=== PATIENT | male | born 1945 | race Caucasian/White ===

== ENCOUNTER 2016-11-11 21:37 | Inpatient (IN) | payer BC ==
--- NOTE | ~2016-11-11 | IDS ---
Interim Discharge Summary [facility] [address] [place]. [address] NAME: HORTENSIA LUA : 43 STATUS : DIS IN PAT#: [id number] AGE: 70 ADM/REG DATE : 11/11/16 MR#: [id number] REPORT SERV DATE: 11/22/16 DICTATED BY: ARIA GAYTAN DATE: 11/21/16 REPORT STATUS : Draft TRANSCRIBED BY: MODL DATE: 11/21/16 ADMISSION DATE: 11/11/2016 DISCHARGE DATE: 11/21/2016 ADDENDUM: For details of this patient's hospital course please see the interim discharge summary dictated by Dr. Timo Kurtz on 11/19/2016. Since that time, the patient has not required any further blood transfusions and the plan was to see if the patient would pass a modified barium swallow. This was done on 11/20/2016. The modified barium swallow was ordered, showed aspiration with all swallows. It was recommended that the patient be kept n.p.o. Other option would be to keep the Dobbhoff. PEG tube was discussed with Gastroenterology, and the patient is not a candidate for a PEG tube secondary to his bleeding and his gastric tumor. [facility] saw the patient on 11/20/2016 and their note stated that the patient would receive no further treatment and the focus should be on quality of life and recommended hospice be consulted. Hospice was indeed consulted on 11/20/2016 and as per the patient's wishes, the patient will be going home with hospice. Currently, he is on amiodarone drip and will be transitioned to oral amiodarone. He was sufficiently treated for Pseudomonas pneumonia. The remainder of his medication and management will be as per hospice. So, he will be discharged home with hospice on 11/21/2016. JOSE A/SAW Aria Gaytan M.D. / [id number] CC: DO Khoi Perez D.O.
--- NOTE | ~2016-11-11 | CN ---
Consultation Report [facility] [address] [place]. [address] NAME: HORTENSIA LUA : 44 STATUS : ADM IN [facility]#: [id number] AGE: 70 ADM/REG DATE : 11/11/16 MR#: [id number] REPORT SERV DATE: 11/14/16 DICTATED BY: RILEY THAKKAR III DATE: 11/14/16 REPORT STATUS : Draft TRANSCRIBED BY: MODL DATE: 11/14/16 CONSULTATION DATE OF CONSULTATION: 11/14/2016 REASON FOR CONSULTATION: 1. Upper gastrointestinal bleeding. 2. Proximal gastric mass. 3. Recommendation regarding surgical management. HISTORY OF PRESENT ILLNESS: I am asked to see this 70-year-old male in the hospital in the Intensive Care Unit for the above reasons. The patient is currently intubated and sedated. The information I have available is from his caregivers and his records. The patient has a history of squamous cell carcinoma of the esophagus. This apparently was diagnosed approximately 10 years ago. He was treated with radiation therapy and chemotherapy. Approximately one year ago in August 2015, he was not found to have recurrent or persistent distal esophageal squamous cell carcinoma. He again underwent radiation therapy and chemotherapy. His recent workup shows evidence for metastatic disease with CT scan of the abdomen and pelvis showing hepatic metastasis. The patient was admitted emergently initially to the [facility] with profound anemia, and evidence for upper GI bleeding. He reported melena. The patient is on Eliquis due to paroxysmal atrial fibrillation. On presentation there, the patient was found to be hypotensive. He had a hemoglobin of 6.3 and hematocrit of 20.4. Since that time, the patient has received about 6 units of blood in transfusion. He has undergone an upper endoscopy and found to have a proximal gastric mass. He underwent a mesenteric arteriogram earlier this week per Dr. Riley Boo. He is found to have evidence for left gastric arterial bleeding and this was successfully embolized. He has had no evidence for bleeding in the last 48 hours or so. He remains on the ventilator. 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 PAST MEDICAL HISTORY: 1. History of esophageal cancer as above. 2. History of paroxysmal atrial fibrillation. 3. Hypertension. 4. Chronic systolic heart failure. 5. COPD. 6. Degenerative joint disease. Consultation Report [facility] [address] [place]. [address] NAME: HORTENSIA LUA : 43 STATUS : ADM IN PAT#: [id number] AGE: 70 ADM/REG DATE : 11/11/16 MR#: [id number] REPORT SERV DATE: 11/14/16 DICTATED BY: RILEY THAKKAR III DATE: 11/14/16 REPORT STATUS : Draft TRANSCRIBED BY: MODCorby DATE: 11/14/16 PAST SURGICAL HISTORY: Includes tonsillectomy, appendectomy, Port-A-Cath placement, parathyroid excisions and spinal fusion. SOCIAL HISTORY: The patient has a previous history of tobacco use. He has a history of alcohol use. He is . He lives [place], [place]. FAMILY HISTORY: Positive for alcoholic cirrhosis. MEDICATIONS: As per the medication list which I reviewed. REVIEW OF SYSTEMS: Not able to obtain. The patient has reported 20 pounds weight loss in the last month. PHYSICAL EXAMINATION: GENERAL: Reveals a male who is intubated and sedated. He is responsive to pain. VITAL SIGNS: Blood pressure of 83/56, temperature 97.6, and pulse of 100. HEENT: Unremarkable. NECK: Unremarkable. NEUROLOGIC: Cranial nerves 2 through 12 are normal. LUNGS: Clear. CARDIAC: Normal. ABDOMEN: Soft and nontender. EXTREMITIES: Unremarkable with no edema. LABORATORY DATA: Electrolytes are unremarkable. Liver enzymes are unremarkable except for an alkaline phosphatase of 253. Most recent hematocrit of 27.2, white blood cell count of 11.8, platelet count of 105,000. INR is normal. CT scan of the abdomen and pelvis performed on 11/09/2016 showed a necrotic gastric cardia, 5.4 cm mass corresponding to the FDG avid mass seen on the PET scan on 08/15/2016. The mass is noted to be increased in size from 4.6 to 5.4 cm. There were noted to be suspicious left retroperitoneal periaortic nodes. There were noted to be multiple hypoattenuating lesions throughout the liver in all segments, many of which are subcentimeter in size, which are suspicious for metastatic disease. There was noted to be an interval development of the paraesophageal level 8 lymph nodes. Endoscopy was performed this week per Dr. Duffy, shows a proximal gastric mass. Endoscopy was performed by Dr. Yousif on 07/21/2016 showed an ulcerated mass in the cardia just below the GE junction. Biopsies were taken at that time and confirmed squamous cell carcinoma. ASSESSMENT: 1. 70-year-old male with persistent squamous cell carcinoma of the esophagus, now extending into the proximal stomach, with stage IV disease with hepatic metastasis and retroperitoneal metastasis. 2. Upper gastrointestinal bleeding related to this mass. The bleeding has been stopped by Interventional Radiology with embolization of the left gastric artery. 3. Hypertension. Consultation Report [facility] [id number] [place]. [address] NAME: HORTENSIA LUA : 44 STATUS : ADM IN PAT#: [id number] AGE: 70 ADM/REG DATE : 11/11/16 MR#: [id number] REPORT SERV DATE: 11/14/16 DICTATED BY: RILEY THAKKAR III DATE: 11/14/16 REPORT STATUS : Draft TRANSCRIBED BY: MODL DATE: 11/14/16 4. Radiation therapy x2 to the mid and distal esophagus. 5. History of alcohol use in the past and tobacco use. PLAN: The patient is stable at this time hemodynamically. He has no evidence for bleeding since the embolization procedure was performed. I do not believe that we have a surgical option which would be reasonable for this patient. Surgical resection of this tumor would require esophagogastrectomy which I feel clearly would be contraindicated in the presence of stage IV disease with hepatic metastasis. I would recommend proceeding with weaning as tolerated. It is possible that the patient may have significant amount of time remaining before further bleeding recurs after his recent embolization. Again, though surgical treatment would require esophagogastrectomy, which I feel is not indicated in the presence of stage IV disease with hepatic metastasis. I will discuss with the patient and his family. We will follow the patient with you. LONDON/SAW Riley Thakkar III, M.D. / [phone] CC: DO Khoi Perez D.O.
--- NOTE | ~2016-11-11 | IDS ---
Interim Discharge Summary [facility] [address] [place]. [address] NAME: HORTENSIA LUA : 43 STATUS : ADM IN PAT#: [id number] AGE: 70 ADM/REG DATE : 11/11/16 MR#: [id number] REPORT SERV DATE: 11/19/16 DICTATED BY: LANNY KURTZ DATE: 11/19/16 REPORT STATUS : Draft TRANSCRIBED BY: MODL DATE: 11/19/16 ADMISSION DATE: 11/11/2016 DISCHARGE DATE: DATE OF TRANSFER TO [facility]: 11/12/2016 INTERIM DIAGNOSES: 1. Acute hypoxic respiratory failure. 2. Pseudomonas pneumonia. 3. Upper gastrointestinal bleed. 4. Gastric tumor. 5. Atrial fibrillation with rapid ventricular response. 6. Dysphagia. 7. Delirium. HOSPITAL COURSE: Please see dictated H and P and consult notes for full patient presentation and history. BRIEF SUMMARY: The patient is a 70-year-old gentleman with a past medical history of esophageal cancer as well as paroxysmal atrial fibrillation, who initially presented to [facility] with an episode of syncope and GI bleed. He was intubated at that time and was in shock, and had an upper GI endoscopy performed, which showed a gastric mass and evidence of bleeding. He was then transferred over here on 11/12/2016 for interventional radiology and coiling which was done followed by repeat endoscopy that showed the gastric mass again, but no further bleeding. The patient's hospital course has been complicated by respiratory failure, GI bleed, atrial fibrillation with rapid ventricular response, dysphagia, and delirium. 1. Upper GI bleed. This has since resolved. Most likely, it was from the gastric tumor that was revealed on EGD. He had coiling done in Interventional Radiology and has had no further bleeding other than two scant maroon-colored stools several days ago. His hemoglobin has been stable and he remains on a PPI. 2. Gastric tumor. Most likely, this is a recurrence of his esophageal cancer. Oncology has been following as well as Surgery and they state that he is not a surgical or chemotherapy candidate at this time. He has received chemoradiation in the past for his history of esophageal cancer. The plan has been that he is a [id number]. Eventually, he would like to get home with hospice. We have been trying to get him medically stable over the weekend to the point where he could go home. Oncology is going to re-evaluate tomorrow, Sunday, and come up with a plan on disposition for the patient. 3. Acute respiratory failure. The patient was intubated for his GI bleed and airway protection and was able to be liberated from the ventilator on 11/16/2016 from a respiratory standpoint. He has done well. He does have a little bit of evidence of some aspiration. We have been diuresing every now and then for volume overload, but overall, he is doing well and continues on pulmonary toilet. He also has a Pseudomonas pneumonia for which he is on day #6 of cefepime for. 4. Atrial fibrillation with rapid ventricular response. The patient remains on IV Interim Discharge Summary [address] [address] NAME: HORTENSIA LUA : 43 STATUS : ADM IN [facility]#: [id number] AGE: 70 ADM/REG DATE : 11/11/16 MR#: [id number] REPORT SERV DATE: 11/19/16 DICTATED BY: LANNY KURTZ DATE: 11/19/16 REPORT STATUS : Draft TRANSCRIBED BY: SAW DATE: 11/19/16 amiodarone for this. Eventually, we would like to transition over to p.o. amiodarone when his rate is better controlled. 5. Dysphagia. The patient has failed his swallow study. Currently, he has a Dobbhoff tube placed by Interventional Radiology beyond his gastric tumor on 11/17/2016 and currently is getting tube feeds. Plan is to re-evaluate his swallowing in the next day or two. His voice is stronger, so hopefully he will do better with this. 6. Delirium. Post-extubation, the patient did have some delirium that was requiring Precedex and Haldol. This has much improved. The patient is alert and oriented x3, although he does have some periods of confusion. This is much better. Oncoming bandage maker will take care of the patient beginning 11/20/2016. Please call if you have any questions. KUSUM/SAW Lanny Kurtz MD / [id number] CC: DO Khoi Perez D.O.
[~2016-11-11 21:37] MED LIST: ADVAIR250 INH; BIST PO; C25 PO; CALTRA600D PO; CARDCD120 PO; CARTIA XT180 MG/24 PO; CHEMOTHERAPY IV; CORDARONE PO; COREG3 PO; COZ50 PO; DIGITEK0.125 MG PO; DIL4TAB PO; DSS PO; ELIQUIS 5 MG TAB5 MG PO; FISH-EPA1000 MG PO; FLECAINIDE100 MG PO; FLEX PO; JANTOVEN2.5 MG PO; KDUR20 PO; L40 PO; LISINOPRIL40 MG PO; LORTAB10 PO; MAGOX4 PO; METHOC500B PO; MUCINEX PO; MUCINEX600 MG PO; NORV5 PO; OPCON-A OPH; PCET PO; PRILO PO; PRIN20 PO; PROAIR HFA INH; PROTONIX PO; PROVHFA PO; STEROID CREAM TOP; TAMBO50 PO; TAMBOCOR PO; TEKTURNA300 MG PO; TRIAMCINOLONE O80 GM TOP; TUMSROLL PO; V180SR PO; V5 PO; VERELAN240 MG PO; [UNRECOGNIZED DRUG - MIXTURE] NAS
[2016-11-12 03:26] LABS: BE (BASE EXCESS) -5.7 MEQ/L (0 +/- 2.5); CARBOXYHEMOGLOBIN 0.1 % (0-3); HCO3 (ACTUAL BICARBONATE) 17.3 MEQ/L (23-27); HEMOBLOGIN CONTENT 10.8 G/DL (14-18); INSTRUMENT SERIAL # 8083; METHEMOGLOBIN 0.3 % (0-3); MODE CMV; O2 CONTENT 15.2 VOL% (18-24); PCO2 (CO2 TENSION) 26 MMHG (35-45); PO2 (O2 TENSION) 149 MMHG (79-93); SAMPLE Arterial; TIDAL VOLUME 650 ML; pH 7.44 (7.37-7.43)
[2016-11-12 03:58] LABS: MEAN CORPUSCULAR VOLUME 82.3 fL (80-100); MEAN PLATELET VOLUME 9.9 fL (9.2-13.0); RBC DISTRIBUTION WIDTH 15.4 % (12.0-16.0); WHITE BLOOD CELLS 20.3 10/3/uL (4.5-10.5)
[2016-11-12 04:05] LABS: INTERNATIONAL NORMAL RATI 1.4 UNITS (-)
[2016-11-12 04:06] LABS: PARTIAL THROMBO TIME 38.2 SEC (22.5-37.2)
[2016-11-12 04:08] LABS: HEMATOCRIT 29.3 % (40.0-51.0); HEMOGLOBIN 10.4 g/dL (13.6-17.8); MANUAL DIFF YES %; MEAN CORPUS HGB CONC 35.5 g/dL (32.0-36.0); MEAN CORPUSCULAR HEMOGLOB 29.2 pg (26.0-34.0); PLATELET COUNT 177 10/3/uL (150-400); RED CELL COUNT 3.56 10/6/uL (4.7-6.1)
[2016-11-12 04:10] LABS: PROTIME (NOT ORD) 17.4 SEC (12.0-14.5)
[2016-11-12 04:11] LABS: ALBUMIN 2.1 G/DL (3.5-5.0); CALCIUM, SERUM 7.1 MG/DL (8.5-10.4); CHLORIDE, SERUM 105 MMOL/L (96-112); CO2 (CARBON DIOXIDE) 17 MMOL/L (24-34); CREATININE 1.46 MG/DL (0.70-1.30); GFR AFRICAN AMERICAN 55 ML/MIN (>=60); GFR NON AFRICAN AMERICAN 48 ML/MIN (>=60); GLUCOSE, SERUM 143 MG/DL (60-99); PHOSPHORUS, SERUM 4.2 MG/DL (2.5-4.5); SGOT(AST) 31 U/L (5-40); SGPT(ALT) 22 U/L (5-65); SODIUM, SERUM 137 MMOL/L (135-148); TOTAL PROTEIN 5.1 G/DL (6.0-8.5)
[2016-11-12 04:12] LABS: ALKALINE PHOSPHATASE 203 U/L (45-117); BUN (BLOOD UREA NITROGEN) 29 MG/DL (6-23); DIRECT BILIRUBIN 0.4 MG/DL (0.0-0.4); INDIRECT BILIRUBIN(NOT ORDER) 0.5 MG/DL (0.1-0.9); TOTAL BILIRUBIN 0.9 MG/DL (0-1.2)
[2016-11-12 04:33] LABS: BAND NEUTROPHILS 3 %; LYMPHOCYTES 6 %; LYMPHOCYTES ABSOLUTE (CALC) 1.22 10/3/uL (0.67-4.30); MONOCYTES 4 %; MONOCYTES ABSOLUTE (CALC) 0.81 10/3/uL (0.21-1.20); NEUTROPHILS ABSOLUTE (CALC) 18.27 10/3/uL (2.02-8.40); SEGMENTED NEUTROPHIL (0) 87 %; TOTAL NUCLEATED CELLS 100
[2016-11-12 04:34] LABS: PLATELET ESTIMATE ADQ (ADEQUATE)
[2016-11-12 04:35] LABS: POLYCHROMASIA 1+ (2-5/OIF) (0-1/OIF)
[2016-11-12 13:34] LABS: HEMOGLOBIN 8.9 g/dL (13.6-17.8)
[2016-11-12 13:35] LABS: HEMATOCRIT 24.7 % (40.0-51.0)
[2016-11-12 22:54] LABS: HEMATOCRIT 25.2 % (40.0-51.0); HEMOGLOBIN 8.8 g/dL (13.6-17.8)
[2016-11-13 05:16] LABS: BASOPHILS 0.2 %; BASOPHILS ABSOLUTE 0.02 10/3/uL (0.0-0.16); EOSINOPHILS 0.8 %; HEMOGLOBIN 7.8 g/dL (13.6-17.8); IMMATURE GRANULOCYTES 0.8 %; IMMATURE GRANULOCYTES ABSOLUTE 0.09 10/3/uL (0.0-0.11); LYMPHOCYTES 6.6 %; LYMPHOCYTES ABSOLUTE 0.78 10/3/uL (0.67-4.30); MEAN CORPUSCULAR HEMOGLOB 29.1 pg (26.0-34.0); MEAN CORPUSCULAR VOLUME 83.2 fL (80-100); MEAN PLATELET VOLUME 9.5 fL (9.2-13.0); MONOCYTES ABSOLUTE 1.18 10/3/uL (0.21-1.20); NEUTROPHILS 81.6 %; NEUTROPHILS ABSOLUTE 9.65 10/3/uL (2.02-8.40); RBC DISTRIBUTION WIDTH 16.8 % (12.0-16.0)
[2016-11-13 05:17] LABS: HEMATOCRIT 22.3 % (40.0-51.0); MANUAL DIFF NO %; PLATELET COUNT 105 10/3/uL (150-400); RED CELL COUNT 2.68 10/6/uL (4.7-6.1); WHITE BLOOD CELLS 11.8 10/3/uL (4.5-10.5)
[2016-11-13 05:33] LABS: BUN (BLOOD UREA NITROGEN) 28 MG/DL (6-23); CALCIUM, SERUM 7.2 MG/DL (8.5-10.4); CHLORIDE, SERUM 109 MMOL/L (96-112); CO2 (CARBON DIOXIDE) 19 MMOL/L (24-34); CREATININE 1.27 MG/DL (0.70-1.30); GFR AFRICAN AMERICAN 65 ML/MIN (>=60); GFR NON AFRICAN AMERICAN 56 ML/MIN (>=60); PHOSPHORUS, SERUM 3.6 MG/DL (2.5-4.5); POTASSIUM, SERUM 4.1 MMOL/L (3.5-5.3); SODIUM, SERUM 140 MMOL/L (135-148)
[2016-11-13 05:34] LABS: GLUCOSE, SERUM 92 MG/DL (60-99)
[2016-11-13 09:30] LABS: FREE T4 1.86 NG/DL (0.76-1.46)
[2016-11-13 12:08] LABS: DIGOXIN 0.4 NG/ML (0.8-2.0)
[2016-11-13 16:41] LABS: HEMATOCRIT 24.4 % (40.0-51.0); HEMOGLOBIN 8.5 g/dL (13.6-17.8)
[2016-11-14 03:35] LABS: ALLENS TEST Pos; BE (BASE EXCESS) -2.9 MEQ/L (0 +/- 2.5); CARBOXYHEMOGLOBIN 0.1 % (0-3); HCO3 (ACTUAL BICARBONATE) 19.7 MEQ/L (23-27); HEMOBLOGIN CONTENT 9.6 G/DL (14-18); INSTRUMENT SERIAL # 8083; METHEMOGLOBIN 0.2 % (0-3); MODE CMV; O2 CONTENT 13.5 VOL% (18-24); OPERATOR ID 17370; PCO2 (CO2 TENSION) 27 MMHG (35-45); PO2 (O2 TENSION) 138 MMHG (79-93); SAMPLE Arterial; TIDAL VOLUME 550 ML; pH 7.48 (7.37-7.43)
[2016-11-14 05:34] LABS: HEMATOCRIT 27.2 % (40.0-51.0); HEMOGLOBIN 9.3 g/dL (13.6-17.8)
[2016-11-14 05:52] LABS: ALBUMIN 1.8 G/DL (3.5-5.0); CALCIUM, SERUM 7.3 MG/DL (8.5-10.4); CHLORIDE, SERUM 108 MMOL/L (96-112); CO2 (CARBON DIOXIDE) 20 MMOL/L (24-34); CREATININE 0.89 MG/DL (0.70-1.30); GFR AFRICAN AMERICAN 100 ML/MIN (>=60); GFR NON AFRICAN AMERICAN 86 ML/MIN (>=60); PHOSPHORUS, SERUM 3.1 MG/DL (2.5-4.5); POTASSIUM, SERUM 3.8 MMOL/L (3.5-5.3); SGOT(AST) 122 U/L (5-40); SGPT(ALT) 69 U/L (5-65); SODIUM, SERUM 139 MMOL/L (135-148); TOTAL BILIRUBIN 0.6 MG/DL (0-1.2); TOTAL PROTEIN 5.1 G/DL (6.0-8.5)
[2016-11-14 05:53] LABS: A/G RATIO 0.5 (0.7-1.9); ALKALINE PHOSPHATASE 253 U/L (45-117); BUN (BLOOD UREA NITROGEN) 19 MG/DL (6-23); GLOBULIN 3.3 G/DL (2.5-4.1); GLUCOSE, SERUM 112 MG/DL (60-99)
[2016-11-14 22:46] LABS: HEMATOCRIT 28.2 % (40.0-51.0); HEMOGLOBIN 9.7 g/dL (13.6-17.8)
[2016-11-14 22:55] LABS: BUN (BLOOD UREA NITROGEN) 19 MG/DL (6-23); CALCIUM, SERUM 7.4 MG/DL (8.5-10.4); CHLORIDE, SERUM 108 MMOL/L (96-112); CREATININE 0.87 MG/DL (0.70-1.30); GFR AFRICAN AMERICAN 101 ML/MIN (>=60); GFR NON AFRICAN AMERICAN 87 ML/MIN (>=60); GLUCOSE, SERUM 127 MG/DL (60-99); PHOSPHORUS, SERUM 3.4 MG/DL (2.5-4.5); POTASSIUM, SERUM 3.5 MMOL/L (3.5-5.3); SODIUM, SERUM 141 MMOL/L (135-148)
[2016-11-14 22:57] LABS: CO2 (CARBON DIOXIDE) 25 MMOL/L (24-34)
[2016-11-15 03:53] LABS: HEMATOCRIT 27.3 % (40.0-51.0); HEMOGLOBIN 9.4 g/dL (13.6-17.8); MEAN CORPUS HGB CONC 34.4 g/dL (32.0-36.0); MEAN CORPUSCULAR HEMOGLOB 28.8 pg (26.0-34.0); MEAN CORPUSCULAR VOLUME 83.7 fL (80-100); MEAN PLATELET VOLUME 10.1 fL (9.2-13.0); RBC DISTRIBUTION WIDTH 17.9 % (12.0-16.0); WHITE BLOOD CELLS 16.1 10/3/uL (4.5-10.5)
[2016-11-15 03:54] LABS: MANUAL DIFF YES %; PLATELET COUNT 163 10/3/uL (150-400); RED CELL COUNT 3.26 10/6/uL (4.7-6.1)
[2016-11-15 04:07] LABS: BUN (BLOOD UREA NITROGEN) 17 MG/DL (6-23); CALCIUM, SERUM 7.2 MG/DL (8.5-10.4); CHLORIDE, SERUM 109 MMOL/L (96-112); CO2 (CARBON DIOXIDE) 23 MMOL/L (24-34); CREATININE 0.84 MG/DL (0.70-1.30); GFR AFRICAN AMERICAN 102 ML/MIN (>=60); GFR NON AFRICAN AMERICAN 88 ML/MIN (>=60); GLUCOSE, SERUM 123 MG/DL (60-99); PHOSPHORUS, SERUM 3.2 MG/DL (2.5-4.5); POTASSIUM, SERUM 3.7 MMOL/L (3.5-5.3); SODIUM, SERUM 142 MMOL/L (135-148)
[2016-11-15 04:13] LABS: BAND NEUTROPHILS 4 %; EOSINOPHILS 2 %; EOSINOPHILS ABSOLUTE (CALC) 0.32 10/3/uL (0.0-0.53); LYMPHOCYTES 3 %; LYMPHOCYTES ABSOLUTE (CALC) 0.48 10/3/uL (0.67-4.30); MONOCYTES 7 %; MONOCYTES ABSOLUTE (CALC) 1.13 10/3/uL (0.21-1.20); NEUTROPHILS ABSOLUTE (CALC) 14.17 10/3/uL (2.02-8.40); SEGMENTED NEUTROPHIL (0) 84 %; TOTAL NUCLEATED CELLS 100
[2016-11-15 04:14] LABS: ANISOCYTOSIS 1+ (5-10/OIF) (0-5/OIF); PLATELET ESTIMATE ADQ (ADEQUATE)
[2016-11-15 17:49] LABS: HEMATOCRIT 27.1 % (40.0-51.0); HEMOGLOBIN 9.3 g/dL (13.6-17.8)
[2016-11-16 04:16] LABS: BASOPHILS 0.4 %; BASOPHILS ABSOLUTE 0.04 10/3/uL (0.0-0.16); EOSINOPHILS 2.9 %; EOSINOPHILS ABSOLUTE 0.31 10/3/uL (0.0-0.53); HEMATOCRIT 24.7 % (40.0-51.0); HEMOGLOBIN 8.5 g/dL (13.6-17.8); IMMATURE GRANULOCYTES 0.9 %; LYMPHOCYTES 5.7 %; LYMPHOCYTES ABSOLUTE 0.61 10/3/uL (0.67-4.30); MEAN CORPUS HGB CONC 34.4 g/dL (32.0-36.0); MEAN CORPUSCULAR HEMOGLOB 29.2 pg (26.0-34.0); MEAN CORPUSCULAR VOLUME 84.9 fL (80-100); MONOCYTES 12.6 %; MONOCYTES ABSOLUTE 1.35 10/3/uL (0.21-1.20); NEUTROPHILS 77.5 %; NEUTROPHILS ABSOLUTE 8.28 10/3/uL (2.02-8.40); PLATELET COUNT 151 10/3/uL (150-400); RBC DISTRIBUTION WIDTH 18.2 % (12.0-16.0); RED CELL COUNT 2.91 10/6/uL (4.7-6.1); WHITE BLOOD CELLS 10.7 10/3/uL (4.5-10.5)
[2016-11-16 04:17] LABS: MANUAL DIFF NO %
[2016-11-16 04:30] LABS: CALCIUM, SERUM 7.2 MG/DL (8.5-10.4); CHLORIDE, SERUM 109 MMOL/L (96-112); CO2 (CARBON DIOXIDE) 25 MMOL/L (24-34); CREATININE 0.65 MG/DL (0.70-1.30); GFR AFRICAN AMERICAN 113 ML/MIN (>=60); GFR NON AFRICAN AMERICAN 98 ML/MIN (>=60); GLUCOSE, SERUM 103 MG/DL (60-99); PHOSPHORUS, SERUM 2.6 MG/DL (2.5-4.5); POTASSIUM, SERUM 3.7 MMOL/L (3.5-5.3); SODIUM, SERUM 141 MMOL/L (135-148)
[2016-11-16 04:31] LABS: BUN (BLOOD UREA NITROGEN) 11 MG/DL (6-23)
[2016-11-16 17:25] LABS: HEMOGLOBIN 9.3 g/dL (13.6-17.8)
[2016-11-16 17:26] LABS: HEMATOCRIT 28.1 % (40.0-51.0)
[2016-11-17 05:34] LABS: BASOPHILS 0.2 %; BASOPHILS ABSOLUTE 0.02 10/3/uL (0.0-0.16); EOSINOPHILS 2.1 %; EOSINOPHILS ABSOLUTE 0.19 10/3/uL (0.0-0.53); HEMATOCRIT 28.6 % (40.0-51.0); HEMOGLOBIN 9.5 g/dL (13.6-17.8); IMMATURE GRANULOCYTES 1.1 %; LYMPHOCYTES 5.3 %; LYMPHOCYTES ABSOLUTE 0.48 10/3/uL (0.67-4.30); MEAN CORPUS HGB CONC 33.2 g/dL (32.0-36.0); MEAN CORPUSCULAR HEMOGLOB 28.3 pg (26.0-34.0); MEAN CORPUSCULAR VOLUME 85.1 fL (80-100); MEAN PLATELET VOLUME 9.9 fL (9.2-13.0); MONOCYTES 18.5 %; MONOCYTES ABSOLUTE 1.67 10/3/uL (0.21-1.20); NEUTROPHILS 72.8 %; NEUTROPHILS ABSOLUTE 6.59 10/3/uL (2.02-8.40); PLATELET COUNT 150 10/3/uL (150-400); RED CELL COUNT 3.36 10/6/uL (4.7-6.1); WHITE BLOOD CELLS 9.1 10/3/uL (4.5-10.5)
[2016-11-17 05:37] LABS: MANUAL DIFF NO %
[2016-11-17 05:49] LABS: BUN (BLOOD UREA NITROGEN) 9 MG/DL (6-23); CALCIUM, SERUM 7.7 MG/DL (8.5-10.4); CHLORIDE, SERUM 109 MMOL/L (96-112); CO2 (CARBON DIOXIDE) 23 MMOL/L (24-34); CREATININE 0.65 MG/DL (0.70-1.30); GFR AFRICAN AMERICAN 113 ML/MIN (>=60); GFR NON AFRICAN AMERICAN 98 ML/MIN (>=60); GLUCOSE, SERUM 85 MG/DL (60-99); PHOSPHORUS, SERUM 2.5 MG/DL (2.5-4.5); POTASSIUM, SERUM 3.6 MMOL/L (3.5-5.3); SODIUM, SERUM 142 MMOL/L (135-148)
[2016-11-18 04:06] LABS: BASOPHILS 0.4 %; BASOPHILS ABSOLUTE 0.05 10/3/uL (0.0-0.16); EOSINOPHILS ABSOLUTE 0.23 10/3/uL (0.0-0.53); HEMATOCRIT 32.1 % (40.0-51.0); HEMOGLOBIN 10.7 g/dL (13.6-17.8); IMMATURE GRANULOCYTES 1.8 %; IMMATURE GRANULOCYTES ABSOLUTE 0.21 10/3/uL (0.0-0.11); LYMPHOCYTES 4.8 %; LYMPHOCYTES ABSOLUTE 0.56 10/3/uL (0.67-4.30); MANUAL DIFF NO %; MEAN CORPUS HGB CONC 33.3 g/dL (32.0-36.0); MEAN CORPUSCULAR HEMOGLOB 28.3 pg (26.0-34.0); MEAN CORPUSCULAR VOLUME 84.9 fL (80-100); MEAN PLATELET VOLUME 10.2 fL (9.2-13.0); MONOCYTES 17.7 %; MONOCYTES ABSOLUTE 2.07 10/3/uL (0.21-1.20); NEUTROPHILS 73.3 %; NEUTROPHILS ABSOLUTE 8.57 10/3/uL (2.02-8.40); PLATELET COUNT 215 10/3/uL (150-400); RBC DISTRIBUTION WIDTH 17.6 % (12.0-16.0); RED CELL COUNT 3.78 10/6/uL (4.7-6.1); WHITE BLOOD CELLS 11.7 10/3/uL (4.5-10.5)
[2016-11-18 04:18] LABS: BUN (BLOOD UREA NITROGEN) 13 MG/DL (6-23); CALCIUM, SERUM 8.3 MG/DL (8.5-10.4); CHLORIDE, SERUM 107 MMOL/L (96-112); CO2 (CARBON DIOXIDE) 27 MMOL/L (24-34); CREATININE 0.79 MG/DL (0.70-1.30); GFR AFRICAN AMERICAN 105 ML/MIN (>=60); GFR NON AFRICAN AMERICAN 90 ML/MIN (>=60); GLUCOSE, SERUM 124 MG/DL (60-99); PHOSPHORUS, SERUM 2.2 MG/DL (2.5-4.5); POTASSIUM, SERUM 3.7 MMOL/L (3.5-5.3); SODIUM, SERUM 140 MMOL/L (135-148)
[2016-11-18 15:56] LABS: BASOPHILS 0.4 %; BASOPHILS ABSOLUTE 0.04 10/3/uL (0.0-0.16); EOSINOPHILS 2.3 %; EOSINOPHILS ABSOLUTE 0.22 10/3/uL (0.0-0.53); HEMATOCRIT 30.5 % (40.0-51.0); HEMOGLOBIN 10.1 g/dL (13.6-17.8); IMMATURE GRANULOCYTES 1.9 %; IMMATURE GRANULOCYTES ABSOLUTE 0.18 10/3/uL (0.0-0.11); LYMPHOCYTES 12.6 %; LYMPHOCYTES ABSOLUTE 1.22 10/3/uL (0.67-4.30); MEAN CORPUS HGB CONC 33.1 g/dL (32.0-36.0); MEAN CORPUSCULAR HEMOGLOB 28.2 pg (26.0-34.0); MEAN CORPUSCULAR VOLUME 85.2 fL (80-100); MEAN PLATELET VOLUME 9.9 fL (9.2-13.0); MONOCYTES 13.1 %; MONOCYTES ABSOLUTE 1.27 10/3/uL (0.21-1.20); NEUTROPHILS 69.7 %; NEUTROPHILS ABSOLUTE 6.79 10/3/uL (2.02-8.40); PLATELET COUNT 175 10/3/uL (150-400); RBC DISTRIBUTION WIDTH 17.6 % (12.0-16.0); RED CELL COUNT 3.58 10/6/uL (4.7-6.1); WHITE BLOOD CELLS 9.7 10/3/uL (4.5-10.5)
[2016-11-18 15:59] LABS: MANUAL DIFF NO %
[2016-11-18 22:21] LABS: HEMOGLOBIN 9.7 g/dL (13.6-17.8); MEAN CORPUS HGB CONC 33.4 g/dL (32.0-36.0); MEAN CORPUSCULAR HEMOGLOB 28.4 pg (26.0-34.0); MEAN CORPUSCULAR VOLUME 84.8 fL (80-100); MEAN PLATELET VOLUME 9.9 fL (9.2-13.0); PLATELET COUNT 149 10/3/uL (150-400); RBC DISTRIBUTION WIDTH 17.4 % (12.0-16.0); RED CELL COUNT 3.42 10/6/uL (4.7-6.1); WHITE BLOOD CELLS 9.8 10/3/uL (4.5-10.5)
[2016-11-18 22:25] LABS: MANUAL DIFF YES %
[2016-11-18 22:43] LABS: BAND NEUTROPHILS 10 %; LYMPHOCYTES 9 %; LYMPHOCYTES ABSOLUTE (CALC) 0.88 10/3/uL (0.67-4.30); MONOCYTES 6 %; MONOCYTES ABSOLUTE (CALC) 0.59 10/3/uL (0.21-1.20); NEUTROPHILS ABSOLUTE (CALC) 8.33 10/3/uL (2.02-8.40); PLATELET ESTIMATE ADQ (ADEQUATE); SEGMENTED NEUTROPHIL (0) 75 %; TOTAL NUCLEATED CELLS 100
[2016-11-19 04:33] LABS: HEMATOCRIT 28.8 % (40.0-51.0); HEMOGLOBIN 9.6 g/dL (13.6-17.8); MEAN CORPUS HGB CONC 33.3 g/dL (32.0-36.0); MEAN CORPUSCULAR HEMOGLOB 28.6 pg (26.0-34.0); MEAN CORPUSCULAR VOLUME 85.7 fL (80-100); PLATELET COUNT 163 10/3/uL (150-400); RBC DISTRIBUTION WIDTH 17.6 % (12.0-16.0); RED CELL COUNT 3.36 10/6/uL (4.7-6.1); WHITE BLOOD CELLS 10.3 10/3/uL (4.5-10.5)
[2016-11-19 04:35] LABS: MANUAL DIFF YES %
[2016-11-19 04:39] LABS: BUN (BLOOD UREA NITROGEN) 13 MG/DL (6-23); CALCIUM, SERUM 7.8 MG/DL (8.5-10.4); CHLORIDE, SERUM 106 MMOL/L (96-112); CO2 (CARBON DIOXIDE) 28 MMOL/L (24-34); CREATININE 0.71 MG/DL (0.70-1.30); GFR AFRICAN AMERICAN 109 ML/MIN (>=60); GFR NON AFRICAN AMERICAN 94 ML/MIN (>=60); PHOSPHORUS, SERUM 2.5 MG/DL (2.5-4.5); POTASSIUM, SERUM 3.4 MMOL/L (3.5-5.3); SODIUM, SERUM 142 MMOL/L (135-148)
[2016-11-19 04:44] LABS: GLUCOSE, SERUM 92 MG/DL (60-99)
[2016-11-19 05:09] LABS: BAND NEUTROPHILS 8 %; EOSINOPHILS 3 %; EOSINOPHILS ABSOLUTE (CALC) 0.31 10/3/uL (0.0-0.53); LYMPHOCYTES 2 %; LYMPHOCYTES ABSOLUTE (CALC) 0.21 10/3/uL (0.67-4.30); MONOCYTES ABSOLUTE (CALC) 0.82 10/3/uL (0.21-1.20); NEUTROPHILS ABSOLUTE (CALC) 8.96 10/3/uL (2.02-8.40); TOTAL NUCLEATED CELLS 100
[2016-11-19 05:10] LABS: ANISOCYTOSIS 1+ (5-10/OIF) (0-5/OIF); MONOCYTES 15 %; PLATELET ESTIMATE ADQ (ADEQUATE); RBC MORPHOLOGY ABN (NORMAL); SEGMENTED NEUTROPHIL (0) 72 %
[2016-11-20 03:41] LABS: HEMATOCRIT 30.9 % (40.0-51.0); HEMOGLOBIN 10.1 g/dL (13.6-17.8); MANUAL DIFF YES %; MEAN CORPUS HGB CONC 32.7 g/dL (32.0-36.0); MEAN CORPUSCULAR HEMOGLOB 28.1 pg (26.0-34.0); MEAN CORPUSCULAR VOLUME 86.1 fL (80-100); MEAN PLATELET VOLUME 10.1 fL (9.2-13.0); PLATELET COUNT 166 10/3/uL (150-400); RBC DISTRIBUTION WIDTH 17.3 % (12.0-16.0); RED CELL COUNT 3.59 10/6/uL (4.7-6.1); WHITE BLOOD CELLS 9.3 10/3/uL (4.5-10.5)
[2016-11-20 04:01] LABS: BUN (BLOOD UREA NITROGEN) 14 MG/DL (6-23); CALCIUM, SERUM 7.8 MG/DL (8.5-10.4); CHLORIDE, SERUM 104 MMOL/L (96-112); CO2 (CARBON DIOXIDE) 28 MMOL/L (24-34); CREATININE 0.77 MG/DL (0.70-1.30); GFR AFRICAN AMERICAN 106 ML/MIN (>=60); GFR NON AFRICAN AMERICAN 91 ML/MIN (>=60); PHOSPHORUS, SERUM 2.7 MG/DL (2.5-4.5); POTASSIUM, SERUM 3.7 MMOL/L (3.5-5.3); SODIUM, SERUM 139 MMOL/L (135-148)
[2016-11-20 04:03] LABS: ANISOCYTOSIS 1+ (5-10/OIF) (0-5/OIF); BAND NEUTROPHILS 6 %; EOSINOPHILS 2 %; EOSINOPHILS ABSOLUTE (CALC) 0.19 10/3/uL (0.0-0.53); IMMATURE GRANS ABSOLUTE (CALC) 0.09 10/3/uL (0.0-0.11); LYMPHOCYTES 3 %; LYMPHOCYTES ABSOLUTE (CALC) 0.28 10/3/uL (0.67-4.30); METAMYELOCYTES 1 %; MONOCYTES 5 %; MONOCYTES ABSOLUTE (CALC) 0.47 10/3/uL (0.21-1.20); NEUTROPHILS ABSOLUTE (CALC) 8.28 10/3/uL (2.02-8.40); PLATELET ESTIMATE ADQ (ADEQUATE); SEGMENTED NEUTROPHIL (0) 83 %; TOTAL NUCLEATED CELLS 100
[2016-11-20 04:04] LABS: RBC MORPHOLOGY ABN (NORMAL)
[2016-11-20 04:10] LABS: GLUCOSE, SERUM 118 MG/DL (60-99)
[2016-11-21 03:43] LABS: BASOPHILS 0.5 %; BASOPHILS ABSOLUTE 0.04 10/3/uL (0.0-0.16); EOSINOPHILS 2.6 %; EOSINOPHILS ABSOLUTE 0.22 10/3/uL (0.0-0.53); HEMATOCRIT 25.9 % (40.0-51.0); HEMOGLOBIN 8.5 g/dL (13.6-17.8); IMMATURE GRANULOCYTES 1.2 %; LYMPHOCYTES 9.6 %; MANUAL DIFF NO %; MEAN CORPUS HGB CONC 32.8 g/dL (32.0-36.0); MEAN CORPUSCULAR HEMOGLOB 28.1 pg (26.0-34.0); MEAN CORPUSCULAR VOLUME 85.5 fL (80-100); MEAN PLATELET VOLUME 10.6 fL (9.2-13.0); MONOCYTES 13.8 %; MONOCYTES ABSOLUTE 1.15 10/3/uL (0.21-1.20); NEUTROPHILS 72.3 %; NEUTROPHILS ABSOLUTE 6.02 10/3/uL (2.02-8.40); PLATELET COUNT 159 10/3/uL (150-400); RBC DISTRIBUTION WIDTH 17.3 % (12.0-16.0); RED CELL COUNT 3.03 10/6/uL (4.7-6.1); WHITE BLOOD CELLS 8.3 10/3/uL (4.5-10.5)
[2016-11-21 04:01] LABS: CALCIUM, SERUM 7.7 MG/DL (8.5-10.4); CHLORIDE, SERUM 103 MMOL/L (96-112); CO2 (CARBON DIOXIDE) 28 MMOL/L (24-34); CREATININE 0.86 MG/DL (0.70-1.30); GFR AFRICAN AMERICAN 101 ML/MIN (>=60); GFR NON AFRICAN AMERICAN 87 ML/MIN (>=60); GLUCOSE, SERUM 116 MG/DL (60-99); PHOSPHORUS, SERUM 1.9 MG/DL (2.5-4.5); SODIUM, SERUM 139 MMOL/L (135-148)
[2016-11-21 04:02] LABS: BUN (BLOOD UREA NITROGEN) 19 MG/DL (6-23)
[2016-11-21 11:34] LABS: HEMATOCRIT 28.7 % (40.0-51.0); HEMOGLOBIN 9.2 g/dL (13.6-17.8)
== END 2016-11-21 15:37 | disposition hospice, home (50) | DRG 356 ==
LOC: MIC 21:37
PROVIDERS: Internal Medicine; Internal Medicine Critical Care Medicine; Internal Medicine Gastroenterology; Internal Medicine Pulmonary Disease; Orthopaedic Surgery; Orthopaedic Surgery Sports Medicine; Radiology Radiation Oncology
PROC: 04L23ZZ Occlusion of Gastric Artery, Percutaneous Approach (ICD-10-PCS; 2016-11-11)
PROC: 0BH17EZ Insertion of Endotracheal Airway into Trachea, Via Natural or Artificial Opening (ICD-10-PCS; 2016-11-11)
PROC: 0DC68ZZ Extirpation of Matter from Stomach, Via Natural or Artificial Opening Endoscopic (ICD-10-PCS; 2016-11-11)
PROC: 02HV33Z Insertion of Infusion Device into Superior Vena Cava, Percutaneous Approach (ICD-10-PCS; 2016-11-12)
PROC: 4A02X4A Measurement of Cardiac Electrical Activity, Guidance, External Approach (ICD-10-PCS; 2016-11-12)
PROC: 30233N1 Transfusion of Nonautologous Red Blood Cells into Peripheral Vein, Percutaneous Approach (ICD-10-PCS; 2016-11-13)
PROC: 5A1955Z Respiratory Ventilation, Greater than 96 Consecutive Hours (ICD-10-PCS; 2016-11-13)
PROC: 0DJ08ZZ Inspection of Upper Intestinal Tract, Via Natural or Artificial Opening Endoscopic (ICD-10-PCS; principal; 2016-11-13 12:26)
DX: C78.89 Secondary malignant neoplasm of other digestive organs (principal); J96.01 Acute respiratory failure with hypoxia; R57.1 Hypovolemic shock; J15.1 Pneumonia due to Pseudomonas; N17.9 Acute kidney failure, unspecified; I11.0 Hypertensive heart disease with heart failure; R18.8 Other ascites; I50.22 Chronic systolic (congestive) heart failure; D62 Acute posthemorrhagic anemia; K92.2 Gastrointestinal hemorrhage, unspecified; M87.059 Idiopathic aseptic necrosis of unspecified femur; R13.10 Dysphagia, unspecified; C78.7 Secondary malignant neoplasm of liver and intrahepatic bile duct; I48.0 Paroxysmal atrial fibrillation; I48.2 Chronic atrial fibrillation; Z51.5 Encounter for palliative care; Z66 Do not resuscitate; J44.9 Chronic obstructive pulmonary disease, unspecified; I10 Essential (primary) hypertension; Z90.49 Acquired absence of other specified parts of digestive tract; Z98.890 Other specified postprocedural states; Z85.01 Personal history of malignant neoplasm of esophagus; Z79.899 Other long term (current) drug therapy; R41.0 Disorientation, unspecified; Z92.3 Personal history of irradiation; Z92.21 Personal history of antineoplastic chemotherapy; Z88.0 Allergy status to penicillin; N40.0 Benign prostatic hyperplasia without lower urinary tract symptoms; R59.0 Localized enlarged lymph nodes
CPT/HCPCS: 31720; 36245; 36247; 36415; 36430; 36569; 36600; 37242; 43752; 71010; 71260; 74000; 74177; 74230; 75726; 75774; 80048; 80053; 80076; 80162; 81001; 82805; 83690; 83735; 83880; 84100; 84145; 84439; 84443; 84484; 85014; 85018; 85025; 85610; 85730; 86850; 86900; 86901; 86920; 87040; 87070; 87077; 87186; 87205; 87641; 92611-GN; 93005; 94002; 94003; 94640; 94660; 94667; 94668; 96374; 99291; A9270-GY; C1751; C1769; C1887; C1894; C9113; J0282; J0330; J0456; J0692; J1630; J1940; J2765; J3010; J3370; J3430; J3475; P9016; P9059; Q9967